=== PATIENT | male | born 1945 | race Caucasian/White ===

== ENCOUNTER 2016-02-15 09:28 | Emergency (ER) | payer MEDICARE, BC ==
[~2016-02-15 09:28] MED LIST: VICO7.5T; [UNRECOGNIZED DRUG - CODE]
[2016-02-15 09:33] VITALS: BP 139/68; PULSE 72; RESP 20; TEMP 98.8; O2SAT 99
[2016-02-15] MEDS ORDERED: ZOFR4TAB PO (09:56)
[2016-02-15] MEDS ORDERED: CIPR-9 PO (09:56)
[2016-02-15] MEDS ORDERED: METR-1 PO (09:56)
[2016-02-15] MEDS ORDERED: PERC5TAB12 PO (09:56)
--- NOTE | 2016-02-15 10:00 | PD ---
HPI Chief Complaint: Abdominal Pain Time Seen by Provider: 09:43 Travel History International Travel<30 days: No Contact w/Intl Traveler<30days: No Traveled to known affect area: No History of Present Illness HPI This patient complains of abdominal pain. Location is left lower quadrant. The pain comes and goes, mild to moderate in intensity. He has no fever or vomiting. He ate toast this morning without difficulty. He has history of diverticulitis and this feels the same. He is pretty convinced he is having diverticulitis here. PFSH Past Medical History Hx Anticoagulant Therapy: Yes (PLAVIX) Cardiovascular Problems: Yes (OPEN HEART) Past Surgical History Body Medical Devices: IBS Social History Alcohol Use: Yes (DAILY) Tobacco Use: No Allergies-Medications (Allergen,Severity, Reaction): Coded Allergies: Simvastatin (Verified Allergy, Unknown, 02/15/16) Reported Meds & Prescriptions Reported Meds & Active Scripts Active Cipro (Ciprofloxacin HCl) 500 Mg Tab 500 Mg PO BID Flagyl (Metronidazole) 500 Mg Tab 500 Mg PO QID Zofran (Ondansetron HCl) 4 Mg Tab 4 Mg PO Q6HR PRN Percocet (Oxycodone-Acetaminophen) 5-325 mg Tab 1 Tab PO Q6H PRN Reported Vicodin Es7.5 - 750 Mg/7.5 Mg Tab [id number] Mg/5 Ml 2 Mg/Ml Syrp Review of Systems General / Constitutional: No: Fever HENT: No: Headaches Cardiovascular: No: Chest Pain or Discomfort Physical Exam Narrative GENERAL: Well-nourished, well-developed patient in no apparent distress. SKIN: Warm and dry. HEAD: Atraumatic. Normocephalic. EYES: Pupils equal and round. No scleral icterus. No injection or drainage. ENT: No nasal bleeding or discharge. Mucous membranes pink and moist. NECK: Trachea midline. No JVD. CARDIOVASCULAR: Regular rate and rhythm. No murmur appreciated. RESPIRATORY: No accessory muscle use. Clear to auscultation. Breath sounds equal bilaterally. GASTROINTESTINAL: Abdomen soft, left lower quadrant is tender, no rebound or guarding,nondistended. Hepatic and splenic margins not palpable. MUSCULOSKELETAL: No obvious deformities. No clubbing. No cyanosis. No edema. NEUROLOGICAL: Awake and alert. No obvious cranial nerve deficits. Motor grossly within normal limits. Normal speech. PSYCHIATRIC: Appropriate mood and affect; insight and judgment normal. Data Data Last Documented VS Vital Signs Date Time Temp Pulse Resp B/P Pulse Ox O2 Delivery O2 Flow Rate FiO2 02/15/16 09:33 98.8 72 20 139/68 99 MDM Medical Decision Making Medical Screen Exam Complete: Yes Emergency Medical Condition: Yes Medical Record Reviewed: Yes Differential Diagnosis Diverticulitis, ileus, colitis Narrative Course I have reviewed the patient's electronic medical record. Patient has history of bypass grafting, taking Plavix Had a discussion about options with patient and at bedside. Patient is really not wanting testing. He is convinced that he has diverticulitis. I certainly believe this is most likely given that he has history of it and it feels the same and has left lower quadrant discomfort. His vital signs are normal He has tenderness but essentially is asymptomatic if I am not palpating his abdomen. I think it's reasonable to empirically treat him given the above clinical picture rather than extensive testing and CT imaging Should he not improve in 48 hours she will return. He will discuss with his GI physician. I wrote him Cipro and Flagyl and pain and nausea medicine he get follow-up in a few days. Diagnosis Primary Impression: Abdominal pain Qualified Code: R10.32 - Left lower quadrant pain Additional Instructions: The patient was advised to follow up with their primary care and GI physician and return if they worsen. The patient was warned about potential sedation for the medications they will receive on prescription. Med/Other Pt SpecificInfo: Prescription(s) given Scripts Ciprofloxacin (Cipro)500 Mg [id number] Mg PO BID #14 TAB Ref 0 Prov:Kirk Escobar MD 02/15/16 Metronidazole (Flagyl)500 Mg [id number] Mg PO QID #28 TAB Ref 0 Prov:Kirk Escobar MD 02/15/16 Ondansetron (Zofran)4 Mg Tab4 Mg PO Q6HR PRN (NAUSEA OR VOMITING) #12 TAB Ref 0 Prov:Kirk Escobar MD 02/15/16 Oxycodone-Acetaminophen (Percocet)5-325 mg Tab1 Tab PO Q6H PRN (PAIN) #20 TAB Ref 0 Prov:Kirk Escobar MD 02/15/16 Kirk Escobar MD Feb 15, 2016 10:00
[2016-02-15] MEDS ORDERED: FISH100020 PO (10:08)
[2016-02-15] MEDS ORDERED: METO50TA PO (10:08)
[2016-02-15] MEDS ORDERED: MULT-135 PO (10:08)
[2016-02-15] MEDS ORDERED: CALC600T13 PO (10:08)
[2016-02-15] MEDS ORDERED: VITA10004 PO (10:08)
[2016-02-15] MEDS ORDERED: PLAV75TA29 PO (10:08)
[2016-02-15] MEDS ORDERED: LIPI40TA PO (10:08)
[2016-02-15] MEDS ORDERED: ASPI-110 PO (10:08)
[2016-02-15] MEDS ORDERED: LISI10TA3 PO (10:08)
[2016-02-15] MEDS ORDERED: CIPROFLOXACIN 500 MG TAB PO ONE (10:30)
[2016-02-15] MEDS ORDERED: metroNIDAZOLE 500 MG TAB PO ONE (10:30)
== END 2016-02-15 10:33 | disposition home or self-care (01) ==
LOC: PHED 09:28
DX: R10.32 Left lower quadrant pain (principal)
CPT/HCPCS: 99283